=== PATIENT | male | born 1960 | race Caucasian/White ===

== ENCOUNTER → 2022-05-14 | Outpatient (CLI) | payer BC ==
[~2022-05-14] VITALS: Ht 182 cm; Wt 108.0 kg
[~2022-05-14] MED LIST: CATHETER FLUSH 10 ML SYR IVP PRN
[2022-05-14 13:13] VITALS: BP 116/87
--- NOTE | 2022-05-14 17:07 | Cardiology Stress Test Report ---
Stress Test Report Date of Procedure/Referring: Date of Procedure: May 14, 2022 PCP No,Local Physician Admitting Physician Admitting Physician: Attending Physician: Rebecca Black MD Indications: HTN Baseline Heart Rate: 53 Baseline Blood Pressure: Blood Pressure Systolic: 116 Blood Pressure Diastolic: 87 Vital Signs Date Time Temp Pulse Resp B/P (MAP) Pulse Ox O2 Delivery O2 Flow Rate FiO2 05/14/22 13:13 96 16 116/87 (97) 98 Room Air Baseline Vital Signs Vital Signs Date Time Temp Pulse Resp B/P (MAP) Pulse Ox O2 Delivery O2 Flow Rate FiO2 05/14/22 13:13 96 16 116/87 (97) 98 Room Air Baseline EKG: Baseline EKG: NSR Summary: After explaining the procedure and details to the patient, he signed the consent and was brought to the stress nuclear laboratory. Patient exercised on standard Kb protocol, EKG, heart rate and blood pressure were monitored continuously, resting and stress doses of radio tracer were injected, imaging was acquired and reviewed in the short axis, horizontal long axis and vertical long axis views Patient was able to exercise for a total of 5 minutes on Kb protocol, METs 7 Maximum heart rate 147 Maximum blood pressure 257/95 Stress EKG, Minimal nondiagnostic changes Recovery EKG, Return to baseline TID: 0.76 SSS: 3 SDS: 3 EF: 61 Conclusion: 1. Fair exercise tolerance for 5 minutes on standard Kb protocol, 7 METS achieving 91% of maximal expected heart rate 2. Appropriate heart rate response to exercise with hypertensive response to exercise with peak blood pressure 257/95 return to baseline during recovery 3. Nondiagnostic EKG changes with exercise return to baseline during recovery 4. Diaphragmatic attenuation with typical male pattern, no significant ischemia or infarction on SPECT images 5. Normal left ventricular size, ejection fraction 61% REBECCA BLACK MD May 14, 2022 17:07
== END ==
LOC: CARD 09:21
PROVIDERS: ATTEND Internal Medicine Cardiovascular Disease
DX: I11.9 Hypertensive heart disease without heart failure (principal); I25.10 Atherosclerotic heart disease of native coronary artery without angina pectoris
CPT/HCPCS: 78452; 93017; A9502; C8929; 93306

== ENCOUNTER → 2022-05-16 | Outpatient (CLI) | payer BC ==
[~2022-05-16] MED LIST changes: +CATHETER FLUSH 10 ML SYR IV PRN; -CATHETER FLUSH 10 ML SYR IVP PRN; +HOLD METFORMIN - RECEIVED CONTRAST 20 ML VIAL IV SCH; +IOHEXOL 350 MG/ML 100 ML (OMNIPAQUE 350) VIAL IV ONE; +NS 100 ML (IVPB) BAG IV ONE
--- NOTE | 2022-05-16 10:37 | Diagnostic Imaging Report ---
PROCEDURE: CT angiography of the chest with contrast. TECHNIQUE: Multiple contiguous axial images were obtained through the chest after uneventful bolus administration of intravenous contrast. 3D reconstructed CTA MIP acquisitions were also performed. Auto Exposure Controls were utilized during the CT exam to meet ALARA standards for radiation dose reduction. INDICATION: Possible dilatation of the thoracic aorta. Patient also has shortness of breath. No prior studies are available for comparison. The ascending thoracic aorta is slightly prominent measuring 4.2 cm AP x 4.5 cm transverse. Aortic arch and descending thoracic aorta are normal in caliber. There is no dissection. No pericardial or pleural fluid is detected. No pulmonary infiltrates, nodules or masses are detected. The upper abdomen is unremarkable. Bony structures are nonacute. IMPRESSION: There is some mild prominence of the ascending thoracic aorta. The study is otherwise unremarkable. Dictated by: Dictated on workstation # [id number]
== END ==
LOC: RAD 08:39
PROVIDERS: ATTEND Internal Medicine Cardiovascular Disease
DX: I77.810 Thoracic aortic ectasia (principal)
CPT/HCPCS: 71275